=== PATIENT | female | born 1965 | race Caucasian/White ===

== ENCOUNTER 2020-01-12 21:15 | Inpatient (IN) | payer BC ==
[~2020-01-12] VITALS: Ht 177.8 cm; Wt 75.0 kg
[2020-01-12] MEDS ORDERED: iohexol 300mg/ml 100ml inj. ONE (21:36)
[2020-01-12 21:58] LABS: PARTIAL THROMBOPLASTIN TIME 21 SECONDS (22-32)
[2020-01-12 22:01] LABS: BASOPHILS % (AUTO) 0.4 % (0-1); EOSINOPHILS # (AUTO) 0.1 X10'3 (0-0.9); EOSINOPHILS % (AUTO) 0.8 % (0-6); HEMATOCRIT 32.7 % (35.0-45.0); HEMOGLOBIN 10.9 g/dl (12.0-16.0); LYMPHOCYTES # (AUTO) 1.7 X10'3 (1.1-4.8); LYMPHOCYTES % (AUTO) 19.5 % (21-51); MEAN CORPUSCULAR HEMOGLOBIN 30.8 PG (27.0-31.0); MEAN CORPUSCULAR HGB CONC 33.2 g/dL (33.0-36.5); MEAN CORPUSCULAR VOLUME 92.8 FL (78-98); MEAN PLATELET VOLUME 7.3 FL (7.4-10.4); MONOCYTES # (AUTO) 0.8 X10'3 (0-0.9); MONOCYTES % (AUTO) 8.7 % (2-12); NEUTROPHILS # (AUTO) 6.1 X10'3 (1.8-7.7); NEUTROPHILS % (AUTO) 70.6 % (42-75); PLATELET COUNT 219 X10'3 (140-440); RED BLOOD COUNT 3.53 X10'6 (4.20-5.60); RED CELL DISTRIBUTION WIDTH 14.4 % (11.5-14.5); WHITE BLOOD COUNT 8.7 X10'3 (4.5-11.0)
[2020-01-12 22:04] LABS: ALANINE AMINOTRANSFERASE 67 U/L (12-78); ALBUMIN 3.1 G/DL (3.4-5.0); ALBUMIN/GLOBULIN RATIO 1.2 (1.1-1.5); ALKALINE PHOSPHATASE 50 IU/L (46-116); ANION GAP 13 (8-16); ASPARTATE AMINO TRANSFERASE 60 U/L (10-37); BILIRUBIN,TOTAL 0.4 MG/DL (0.1-1.0); BLOOD UREA NITROGEN 15 MG/DL (7-18); BUN/CREATININE RATIO 24.6 (6.6-38.0); CALCIUM 7.3 MG/DL (8.5-10.1); CHLORIDE 108 MMOL/L (99-107); CREATININE 0.61 MG/DL (0.40-0.90); ETHANOL < 0.010 GM/DL (0.0-0.010); GLUCOSE 90 MG/DL (70-104); SODIUM 141 MMOL/L (135-145); TOTAL CARBON DIOXIDE 20.2 MMOL/L (24-32); TOTAL PROTEIN 5.7 G/DL (6.4-8.2); TROPONIN I < 0.04 NG/ML (0.0-0.05); eGFR > 90 ML/MIN
[2020-01-12 22:06] LABS: POTASSIUM 2.8 MMOL/L (3.5-5.1)
[2020-01-12] MEDS ORDERED: normal saline 1000ML IV soln IVB ONE (22:10)
--- NOTE | 2020-01-12 22:11 | NUR ---
PT REPORTED RIGHT HAND PAIN. EDMD OHLFS MADE AWARE AND VERBAL ORDER GIVEN FOR HAND XRAY. ORDER PLACED
--- NOTE | 2020-01-12 22:16 | NUR ---
ASSISTED PT TO CALL HER .
[2020-01-12] MEDS ORDERED: NO HOME MEDS (22:20)
--- NOTE | 2020-01-12 22:28 | NUR ---
PER EDMD OHLFS, TRAUMA CALLED OFF
[2020-01-12] MEDS ORDERED: potassium Cl 20 mEq SR tablet PO STA (22:58)
[2020-01-12] MEDS ORDERED: ketorolac trometh. 30mg/ml inj. IV ONE (23:10)
--- NOTE | 2020-01-12 23:13 | NUR ---
PT REPORTS INCREASING PAIN IN HER RIGHT HAND. EDMD OHLFS MADE AWARE AND VERBAL ORDER GIVEN FOR 15MG TORADOL IV X1 DOSE NOW. ORDER COMPLETED
[2020-01-12] MEDS: potassium Cl 10 mEq/100mL bag IV SCH (23:17)
[2020-01-12] MEDS ORDERED: LIDOcaine 1% W/epiNEPHrine 1:200,000 10ml vial IJ ONE (23:20)
[2020-01-12 23:21] LABS: CLARITY,URINE CLEAR (Clear); COLOR,URINE YELLOW (Yellow); GLUCOSE, URINE NEGATIVE (Neg); KETONES,URINE 40 mg/dl (Neg); LEUKOCYTE ESTERASE ,URINE NEGATIVE (Neg); NITRITES, URINE NEGATIVE (Neg); OCCULT BLOOD,URINE LARGE (Neg); PROTEIN,URINE NEGATIVE (Neg); UROBILINOGEN,URINE 0.2 E.U/dL (0.2-1.0)
[2020-01-12 23:26] LABS: UA COLLECTION TYPE CLN CATCH MIDSTREAM
[2020-01-12 23:29] LABS: BACTERIA,URINE NONE SEEN /HPF (Neg); MUCUS STRANDS FEW /LPF (Neg); RBC,URINE 50-100 /HPF (0-2); SQUAMOUS EPITHELIAL CELL,UR NONE SEEN /LPF (FEW); TRANSITIONAL EPI CELLS,URINE FEW /HPF; WBC,URINE 0-4 /HPF (0-4)
[2020-01-12 23:32] LABS: URINE AMPHETAMINE SCREEN NEGATIVE (Neg); URINE BARBITUATE SCREEN NEGATIVE (Neg); URINE BENZODIAZEPINES SCREEN NEGATIVE (Neg); URINE CANNABINOID SCREEN NEGATIVE (Neg); URINE COCAINE SCREEN NEGATIVE (Neg); URINE METHADONE SCREEN NEGATIVE (Neg); URINE OPIATE SCREEN NEGATIVE (Neg); URINE PHENCYCLIDINE SCREEN NEGATIVE (Neg)
[2020-01-13] VITALS (17 sets, daily range): BP systolic 95–148; BP diastolic 44–100
[2020-01-13] MEDS ORDERED: acetaminophen 325mg tablet PO PRN (00:10)
[2020-01-13] MEDS ORDERED: potassium Cl 20 mEq SR tablet PO PRN ×2 (00:10)
[2020-01-13] MEDS ORDERED: mag hydrox/Alum hydrox/simeth 30ml oral suspension PO PRN (00:10)
[2020-01-13] MEDS ORDERED: potassium CL 10mEq/100ml bag 100 ML IV PRN ×2 (00:10)
[2020-01-13] MEDS ORDERED: magnesium hydroxide 30ml (MOM) UD suspension PO PRN (00:10)
[2020-01-13] MEDS ORDERED: ondansetron/PF 4mg/2ml inj IV PRN (00:10)
[2020-01-13] MEDS: potassium Cl 10 mEq/100mL bag IV SCH (00:53)
[2020-01-13] MEDS: morphine 2 MG/ML inj. syringe IV PRN ×2 (00:59→22:07)
--- NOTE | 2020-01-13 01:09 | NUR ---
GAVE PT MILK, APPLESAUCE, AND JELLO PT WAS HUNGRY. NO NAUSEA AT THIS TIME. WILL CONTINUE TO MONITOR.
--- NOTE | 2020-01-13 01:28 | NUR ---
Okay to house patient on Ortho/Neuro per MD Alvarez.
[2020-01-13] MEDS: potassium Cl 20mEq in NS 1,000 ML IV SCH ×2 (02:07→10:10)
--- NOTE | 2020-01-13 06:23 | NUR ---
Problems reprioritized. Patient report given, questions answered & plan of care reviewed with DARLENE Palmer.
[2020-01-13 07:45] LABS: ALANINE AMINOTRANSFERASE 64 U/L (12-78); ALBUMIN 3.2 G/DL (3.4-5.0); ALBUMIN/GLOBULIN RATIO 1.1 (1.1-1.5); ALKALINE PHOSPHATASE 50 IU/L (46-116); ANION GAP 7 (8-16); ASPARTATE AMINO TRANSFERASE 45 U/L (10-37); BILIRUBIN,TOTAL 0.3 MG/DL (0.1-1.0); BLOOD UREA NITROGEN 12 MG/DL (7-18); CALCIUM 8.4 MG/DL (8.5-10.1); CHLORIDE 108 MMOL/L (99-107); CREATININE 0.63 MG/DL (0.40-0.90); GLUCOSE 86 MG/DL (70-104); POTASSIUM 4.4 MMOL/L (3.5-5.1); SODIUM 141 MMOL/L (135-145); TOTAL CARBON DIOXIDE 25.8 MMOL/L (24-32); eGFR > 90 ML/MIN
[2020-01-13] MEDS ORDERED: K and/or MAG REPLACEMENT MC SCH (08:00)
--- NOTE | 2020-01-13 09:25 | NUR ---
PAGER ID: [phone] MESSAGE: RE: [phone] Regi Wolff. Tele reports HR lonnie in 30's, patient felt light headed. HR back in 60's now. MARY ALICE [id number]
[2020-01-13] MEDS ORDERED: magnesium 4gm in 100ml NS 100 ML IV PRN (09:55)
[2020-01-13] MEDS: K and/or MAG REPLACEMENT MC SCH ×2 (09:55→20:00)
[2020-01-13] MEDS ORDERED: magnesium Cl slow-release 64mg tablet PO PRN (09:55)
[2020-01-13 12:51] LABS: MAGNESIUM 2.1 MG/DL (1.5-2.4)
--- NOTE | 2020-01-13 15:07 | NUR ---
PAGER ID: [phone] MESSAGE: [phone] [id number] Regi Wolff. Tele reports heart stopped for 9.8 seconds. Back in Sinus now but patient feels dizzy and lightheaded. [place] [id number]
--- NOTE | 2020-01-13 15:24 | NUR ---
PAGER ID: [phone] MESSAGE: [id number] Regi Wolff. Tele reporting multiple pauses. Cardiology has not consulted yet. Please call CYNDI [phone]
--- NOTE | 2020-01-13 15:33 | NUR ---
Telemetry reported multiple pauses, notified Dr. Curiel. Checked on patient,symptomatic feeling lightheaded and nauseated. Vital signs stable. BP 114/61 HR 57 SP02 100% RR 14. Dr Curiel put orders to transfer patient to PCU and keep NPO for pacemaker placement with Dr. Allen.
--- NOTE | 2020-01-13 16:10 | NUR ---
Patient transferred to U 3020G. Problems reprioritized. Patient report given, questions answered & plan of care reviewed with Triny Sandra
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
[2020-01-13] MEDS ORDERED: midazolam 2 mg/2 ml injection ONE (16:45)
[2020-01-13] MEDS ORDERED: fentaNYL/PF 50MCG/1 ML 2ML syringe ONE (16:45)
[2020-01-13] MEDS ORDERED: ceFAZolin 1000mg inj ONE (16:46)
[2020-01-13] MEDS ORDERED: LIDOcaine 1% W/epiNEPHrine 1:100,000 20ml vial ONE (16:46)
--- NOTE | 2020-01-13 18:10 | NUR ---
Patient in room PCU 3025. I have received report from Triny COLON and had the opportunity to ask questions and assume patient care.
--- NOTE | 2020-01-13 18:19 | NUR ---
Problems reprioritized. Patient report given, questions answered & plan of care reviewed with DARLENE Loza.
[2020-01-13] MEDS ORDERED: HYDROcodone/acetaminophen 10/325mg tab PO PRN (19:05)
[2020-01-13] MEDS ORDERED: normal saline 1000ml 1,000 ML IV SCH (19:05)
[2020-01-13] MEDS ORDERED: LORazepam 1 MG tablet PO PRN (19:05)
[2020-01-13] MEDS ORDERED: HYDROcodone/acetaminophen 5mg/325mg tablet PO PRN (19:05)
--- NOTE | 2020-01-13 19:13 | NUR ---
Spoke with Antonio about diet and NS with K+ running with pts K+ being 4.4. New orders to DC fluids, and add Regular diet.
[2020-01-14] VITALS: BP 136/72
[2020-01-14] MEDS: ceFAZolin 1GM/D5W- ADD-VANTAGE 50 ML IV SCH ×2 (01:43→10:32)
[2020-01-14] MEDS: morphine 2 MG/ML inj. syringe IV PRN (01:51)
[2020-01-14 02:00] VITALS: BP 136/67
[2020-01-14 05:28] LABS: BASOPHILS % (AUTO) 0.4 % (0-1); EOSINOPHILS % (AUTO) 0.7 % (0-6); HEMATOCRIT 37.4 % (35.0-45.0); HEMOGLOBIN 12.4 g/dl (12.0-16.0); LYMPHOCYTES # (AUTO) 1.4 X10'3 (1.1-4.8); LYMPHOCYTES % (AUTO) 19.5 % (21-51); MEAN CORPUSCULAR HEMOGLOBIN 30.9 PG (27.0-31.0); MEAN CORPUSCULAR HGB CONC 33.2 g/dL (33.0-36.5); MEAN CORPUSCULAR VOLUME 93.1 FL (78-98); MEAN PLATELET VOLUME 7.3 FL (7.4-10.4); MONOCYTES # (AUTO) 0.7 X10'3 (0-0.9); MONOCYTES % (AUTO) 9.8 % (2-12); NEUTROPHILS # (AUTO) 4.9 X10'3 (1.8-7.7); NEUTROPHILS % (AUTO) 69.6 % (42-75); PLATELET COUNT 212 X10'3 (140-440); RED BLOOD COUNT 4.01 X10'6 (4.20-5.60); RED CELL DISTRIBUTION WIDTH 14.4 % (11.5-14.5); WHITE BLOOD COUNT 7.1 X10'3 (4.5-11.0)
[2020-01-14 05:40] LABS: ALANINE AMINOTRANSFERASE 123 U/L (12-78); ALBUMIN 3.6 G/DL (3.4-5.0); ALBUMIN/GLOBULIN RATIO 1.1 (1.1-1.5); ALKALINE PHOSPHATASE 58 IU/L (46-116); ANION GAP 9 (8-16); ASPARTATE AMINO TRANSFERASE 72 U/L (10-37); BILIRUBIN,TOTAL 0.3 MG/DL (0.1-1.0); BLOOD UREA NITROGEN 8 MG/DL (7-18); CALCIUM 8.8 MG/DL (8.5-10.1); CHLORIDE 105 MMOL/L (99-107); CREATININE 0.57 MG/DL (0.40-0.90); GLUCOSE 95 MG/DL (70-104); MAGNESIUM 2.1 MG/DL (1.5-2.4); PHOSPHORUS 3.1 MG/DL (2.3-4.5); POTASSIUM 3.6 MMOL/L (3.5-5.1); SODIUM 141 MMOL/L (135-145); TOTAL CARBON DIOXIDE 26.7 MMOL/L (24-32); TOTAL PROTEIN 6.8 G/DL (6.4-8.2); eGFR > 90 ML/MIN
[2020-01-14 06:00] VITALS: BP 141/73
--- NOTE | 2020-01-14 06:24 | NUR ---
Problems reprioritized. Patient report given, questions answered & plan of care reviewed with Triny Sandra RN.
--- NOTE | 2020-01-14 06:36 | NUR ---
Patient in room PCU 3025. I have received report from DARLENE Loza and had the opportunity to ask questions and assume patient care. Patient currently resting in bed, bed locked and low, call light in reach, no acute distress, will continue to monitor.
[2020-01-14] MEDS: K and/or MAG REPLACEMENT MC SCH (07:02)
[2020-01-14 11:00] VITALS: BP 116/67
[2020-01-14] MEDS ORDERED: TRAM50TA2 PO (13:37)
[2020-01-14] MEDS ORDERED: LACT1CAP26 PO (13:37)
--- NOTE | 2020-01-14 14:49 | NUR ---
Received order for patient to discharge to home. Educated patient on new medications, pacemaker insertion post-care, hypokalemia, instructed patient to call [facility] and Dr. Allen's office on Thursday to arrange follow up appointments. Patient verbalized understanding of teaching, all questions answered. IV removed, catheter tip intact, hemostasis achieved, telemetry removed, patient assisted to dress by PCT, PCT will take patient down in wheelchair when her ride arrives. stable at time of discharge
[2020-01-14] MEDS ORDERED: lactobacillus rhamnosus 10,000 MMU CELLS/CAPSULE PO SCH (20:00)
== END 2020-01-14 15:04 | disposition home or self-care (01) | DRG 242 ==
LOC: ER 21:16 → ED HOLD 01-13 00:10 → UNDOADMIN 01-13 00:15 → ED HOLD 01-13 00:15 → ORTHO 4S 01-13 01:52 → ED HOLD 01-13 01:52 → PCU 3S 01-13 16:18 → ORTHO 4S 01-13 16:18
PROVIDERS: ADMIT Internal Medicine; ATTEND Family Medicine
PROC: BW251ZZ Computerized Tomography (CT Scan) of Chest, Abdomen and Pelvis using Low Osmolar Contrast (ICD-10-PCS; 2020-01-12)
PROC: 0HQ0XZZ Repair Scalp Skin, External Approach (ICD-10-PCS; 2020-01-12)
PROC: 0JH606Z Insertion of Pacemaker, Dual Chamber into Chest Subcutaneous Tissue and Fascia, Open Approach (ICD-10-PCS; principal; 2020-01-13)
PROC: 02HK3JZ Insertion of Pacemaker Lead into Right Ventricle, Percutaneous Approach (ICD-10-PCS; 2020-01-13)
PROC: 02H63JZ Insertion of Pacemaker Lead into Right Atrium, Percutaneous Approach (ICD-10-PCS; 2020-01-13)
DX: I49.5 Sick sinus syndrome (principal); I46.9 Cardiac arrest, cause unspecified; D64.9 Anemia, unspecified; E86.0 Dehydration; E87.6 Hypokalemia; G89.29 Other chronic pain; M54.9 Dorsalgia, unspecified; S01.81XA Laceration without foreign body of other part of head, initial encounter; S62.111A Displaced fracture of triquetrum [cuneiform] bone, right wrist, initial encounter for closed fracture; V89.2XXA Person injured in unspecified motor-vehicle accident, traffic, initial encounter; Y93.I9 Activity, other involving external motion; Y99.8 Other external cause status; Z88.8 Allergy status to other drugs, medicaments and biological substances; Y92.410 Unspecified street and highway as the place of occurrence of the external cause
CPT/HCPCS: 12001; 33208; 36415; 70450; 70544; 70547; 70551; 71260; 72125; 73130; 74177; 80053; 80305; 80320; 81001; 83735; 84100; 84443; 84484; 85025; 85610; 85730; 87081; 93005; 93306; 93880; 96374; 99152; 99153; 99285; A4565; A4620; A6258; C1785; C1898; G0378; J0690; J1885; J2250; J2270; J3010; J3480; J7030; Q9967